=== PATIENT | female | born 1940 | race Caucasian/White ===

== ENCOUNTER 2022-11-21 13:34 | Inpatient (IN) | payer OTHER, MEDICAID ==
[~2022-11-21] VITALS: Ht 160 cm; Wt 57.4 kg
--- NOTE | 2022-11-21 13:42 | NUR ---
BIB EMS FROM [facility] [place] C/O LEFT HIP FRACTURE. PER EMS, THE [facility] REPORTED THAT X-RAYS WERE PERFORMED ON THE PT AND THEY DISCOVERED SHE HAS A LEFT HIP FRACTURE AND CALLED EMS FOR TRANFER TO A HOSPITAL FOR TREATMENT. PER EMS, NO KNOWN FALL WERE REPORTED OR WITNESSED. PT IS FULL CODE. PT ALLERGIC TO [facility]. PT IS A TOGOLESE SPEAKER. PT IS AAX04, VS STABLE, NAD NOTED, BREATHING EVEN AND UNLABORED ON RA, PT DENIES N/V/D, PT ON MOLD DUMPER SHOW NSR. PENDING MD SORIANO AND ORDERS.
[2022-11-21 13:54] VITALS: BP_SYST 148
--- NOTE | 2022-11-21 14:00 | NUR ---
PATIENT IN BED 2 AWAITING FOR EDP FOR INITIAL ASSESSMENT.
--- NOTE | 2022-11-21 14:15 | NUR ---
EDP SEEN PATIENT WITH ORDER MATILDE OUT.
[2022-11-21 14:21] LABS: BASOPHILS % (AUTO) 0.5 % (0.0-2.0); EOSINOPHILS # (AUTO) 0.3 K/uL (0.0-0.4); HEMATOCRIT 34.4 % (36-48); HEMOGLOBIN 10.9 g/dL (12.0-16.0); LYMPHOCYTES # (AUTO) 1.4 K/uL (1.0-5.5); LYMPHOCYTES % (AUTO) 16.5 % (20.5-51.5); MEAN CORPUSCULAR HEMOGLOBIN 26 pg (27-31); MEAN CORPUSCULAR HGB CONC 32 % (32-36); MEAN CORPUSCULAR VOLUME 83 fL (79.0-98.0); MONOCYTES # (AUTO) 0.8 K/uL (0.0-1.0); MONOCYTES % (AUTO) 9.2 % (1.7-9.3); NEUTROPHILS # (AUTO) 5.9 K/uL (1.8-7.7); NEUTROPHILS % (AUTO) 69.8 % (40.0-70.0); PLATELET COUNT (AUTO) 224 K/uL (130-430); RED BLOOD CELL COUNT(AUTO) 4.17 MIL/uL (4.2-6.2); RED CELL DISTRIBUTION WIDTH 17.8 % (9.0-15.0); WHITE BLOOD COUNT (AUTO) 8.5 K/uL (4.8-10.8)
[2022-11-21 14:26] LABS: ANION GAP 9 (5-15); CHLORIDE 101 mmol/L (98-107); CREATININE 0.67 mg/dL (0.55-1.30); GLUCOSE 108 mg/dL (70-99); UREA NITROGEN, BLOOD 16 mg/dL (8-21)
[2022-11-21 14:33] LABS: ALANINE AMINOTRANSFERASE 47 U/L (12-78); ALBUMIN 2.3 g/dL (3.4-4.8); ASPARTATE AMINOTRANSFERASE 25 U/L (10-37); TOTAL BILIRUBIN 0.6 mg/dL (0.0-1.0)
[2022-11-21 15:03] LABS: BILIRUBIN,URINE NEGATIVE (NEGATIVE); BLOOD, URINE NEGATIVE (NEGATIVE); CLARITY/URINE CLEAR (CLEAR); COLOR,URINE YELLOW (YELLOW); GLUCOSE,URINE NEGATIVE (NEGATIVE); KETONES,URINE NEGATIVE (NEGATIVE); LEUKOCYTE ESTERASE ,URINE NEGATIVE (NEGATIVE); NITRITE, URINE NEGATIVE (NEGATIVE); PROTEIN URINE NEGATIVE (NEGATIVE); UROBILINOGEN,URINE 0.2 (0.2-1.0)
[2022-11-21] MEDS ORDERED: MORPHINE 4 MG INJ. 4 MG/ML VIAL ONE (15:22)
[2022-11-21] MEDS ORDERED: ONDANSETRON HCL 4 MG/2 ML VIAL IVP ONE (15:30)
[2022-11-21] MEDS ORDERED: MORPHINE 2 MG/ML INJ. SYRINGE IVP ONE (15:30)
--- NOTE | 2022-11-21 16:42 | NUR ---
Admit bed requested Patient will be admitted to care of . Admitted to MS unit. Diagnosis LEFT TROCHANTER FRACTURE Inpatient (Yes or No) YES Observation (Yes or No) NO Orientation concerns or request close to nursing station (Yes or No) NO Covid Status PENDING On vent or bipap NO Isolation requirements NO Needs a sitter NO From Home (Yes or if No enter name of facility) [facility] Requires Dialysis (Yes or No) NO Med Rec Completed (Yes of No) YES
[2022-11-21] MEDS: D5/0.45 NS 1,000 ML IV SCH (16:45)
[2022-11-21] MEDS ORDERED: CAPS60CR4 TP (16:51)
[2022-11-21] MEDS ORDERED: LEVO100T PO (16:51)
[2022-11-21] MEDS ORDERED: ACET-2634 PO (16:51)
[2022-11-21] MEDS ORDERED: TRAM50TA2 PO (16:51)
[2022-11-21] MEDS ORDERED: ESOM40CA PO (16:51)
[2022-11-21] MEDS ORDERED: CLOP75TA32 PO (16:51)
[2022-11-21] MEDS ORDERED: ACET325T53 PO (16:51)
[2022-11-21] MEDS ORDERED: DONE10TA44 PO (16:51)
[2022-11-21] MEDS ORDERED: METO50TA7 PO (16:51)
[2022-11-21] MEDS ORDERED: BUPR75TA20 PO (16:51)
[2022-11-21] MEDS ORDERED: LIP80 PO (16:51)
[2022-11-21] MEDS ORDERED: DOCU-144 PO (16:51)
[2022-11-21] MEDS ORDERED: SENN8.6T19 PO (16:51)
[2022-11-21] MEDS ORDERED: LYR50 PO (16:51)
--- NOTE | 2022-11-21 16:51 | NUR ---
Medication reconciliation completed with information provided by [facility]. Any prior medication reconciliation on file was reviewed and corrected.
--- NOTE | 2022-11-21 17:35 | NUR ---
ORTHOPEDIC SURGEON AT BEDSIDE FOR INITIAL ASSESSMENT.
--- NOTE | 2022-11-21 19:05 | NUR ---
Note undone in EDM - 11/21/22 at 1906 by [email or web address] Patient given written and verbal discharge instructions and verbalizes understanding. ER MD discussed with patient the results and treatment provided. Patient in stable condition. ID arm band removed. IV catheter removed intact and dressing applied, no active bleeding. Rx of AMOXICILLIN/IBUPROFEN given. Patient educated on pain management and to follow up with PMD. Pain Scale0. Opportunity for questions provided and answered. Medication side effect fact sheet provided.
[2022-11-21] MEDS ORDERED: ACETAMINOPHEN 500 MG TABLET PO ONE (19:45)
--- NOTE | 2022-11-21 20:12 | NUR ---
ADMIT NOTE Received pt from ER with a diagnosis of left hip fracture. Admission process initiated. patient oriented to pain management, safety and call light-teach back done.
[2022-11-21 20:45] VITALS: BP_SYST 157
[2022-11-21] MEDS: ONDANSETRON HCL 4 MG/2 ML VIAL IVP PRN (21:10)
[2022-11-21] MEDS: MORPHINE 2 MG/ML INJ. SYRINGE IVP PRN (21:11)
--- NOTE | 2022-11-21 21:11 | NUR ---
PT COMPLAINT SO PAIN ON L HIP.MEDICATED WITH MORPHINE 1 MG IV. Addendum: 11/22/22 at 0703 by [facility] Elver Calles RN RN PT COMPLAINT OF PAIN ON L HIP.
[2022-11-22] VITALS: BP_SYST 137
--- NOTE | 2022-11-22 01:00 | NUR ---
ROUNDS MADE.PT HAS EVEN AND UNLABORED BREATHING NOTED.
[2022-11-22] MEDS: MORPHINE 2 MG/ML INJ. SYRINGE IVP PRN ×2 (03:53→16:51)
[2022-11-22] MEDS: ONDANSETRON HCL 4 MG/2 ML VIAL IVP PRN (03:53)
[2022-11-22 06:10] LABS: BASOPHILS % (AUTO) 0.6 % (0.0-2.0); EOSINOPHILS # (AUTO) 0.3 K/uL (0.0-0.4); EOSINOPHILS % (AUTO) 4.5 % (0.0-4.0); HEMATOCRIT 32.8 % (36-48); HEMOGLOBIN 10.5 g/dL (12.0-16.0); LYMPHOCYTES % (AUTO) 14.9 % (20.5-51.5); MEAN CORPUSCULAR HEMOGLOBIN 26 pg (27-31); MEAN CORPUSCULAR HGB CONC 32 % (32-36); MEAN CORPUSCULAR VOLUME 82 fL (79.0-98.0); MONOCYTES # (AUTO) 0.6 K/uL (0.0-1.0); MONOCYTES % (AUTO) 9.1 % (1.7-9.3); NEUTROPHILS # (AUTO) 4.7 K/uL (1.8-7.7); NEUTROPHILS % (AUTO) 70.9 % (40.0-70.0); PLATELET COUNT (AUTO) 231 K/uL (130-430); RED BLOOD CELL COUNT(AUTO) 4.01 MIL/uL (4.2-6.2); RED CELL DISTRIBUTION WIDTH 17.3 % (9.0-15.0); WHITE BLOOD COUNT (AUTO) 6.6 K/uL (4.8-10.8)
--- NOTE | 2022-11-22 06:27 | NUR ---
DR. Menjivar Called and s/w Dr. Menjivar. Informed medications reported and not reconciled yet. Received orders to continue all meds. Also received order for PTT, PT/INR, and consult with social scientist (unable to contact next of kin).
[2022-11-22] MEDS ORDERED: ACETAMINOPHEN 325 MG TABLET PO PRN (06:30)
[2022-11-22 06:46] LABS: ALANINE AMINOTRANSFERASE 43 U/L (12-78); ANION GAP 7 (5-15); ASPARTATE AMINOTRANSFERASE 21 U/L (10-37); CALCIUM 8.8 mg/dL (8.4-11.0); CHLORIDE 102 mmol/L (98-107); CREATININE 0.61 mg/dL (0.55-1.30); GLUCOSE 116 mg/dL (70-99); TOTAL BILIRUBIN 0.6 mg/dL (0.0-1.0); UREA NITROGEN, BLOOD 14 mg/dL (8-21)
[2022-11-22 08:00] VITALS: BP_SYST 157
--- NOTE | 2022-11-22 08:00 | NUR ---
OPENING NOTES PATIENT IS AOX2. BREATHING IS EVEN AND NONLABORED, ON ROOM AIR. NO SS OF DISTRESS NOTED. NO SOB NOTED. PATIENT DENIES SEVERE PAIN. VITAL SIGNS OBTAINED, DOCUMENTED. IV PATENT. F/C DRAINING BY GRAVITY. BED IS LOCKED, ALARM ON, AND AT LOWEST POSITION. CALL LIGHT WITHIN REACH.
[2022-11-22] MEDS: ZOSTRIX 0.025% CR TP SCH ×3 (08:51→21:00)
[2022-11-22] MEDS: LEVOTHYROXINE SODIUM 0.1 MG TABLET PO SCH (08:51)
[2022-11-22] MEDS: buPROPion HCL 75 MG TABLET PO SCH ×2 (08:51→21:00)
[2022-11-22] MEDS: PREGABALIN 25 MG CAPSULE (LYRICA) PO SCH ×2 (08:51→22:15)
[2022-11-22] MEDS: DOCUSATE SODIUM 100 MG CAPSULE PO SCH ×2 (08:51→22:15)
[2022-11-22] MEDS: METOPROLOL SUCCINATE 50 MG TAB.SR.24H (TOPROL XL) PO SCH (08:52)
[2022-11-22] MEDS: PANTOPRAZOLE SODIUM 40 MG TAB PO SCH (08:52)
[2022-11-22] MEDS: CLOPIDOGREL BISULFATE 75 MG TABLET PO SCH (08:52)
[2022-11-22] MEDS: traMADol HCL HCL 50 MG TABLET (ULTRAM) PO PRN ×2 (08:54→23:28)
[2022-11-22 08:57] LABS: INR 1.1 (0.8-1.2); PROTHROMBIN TIME 11.2 SECS (9.5-12.5)
[2022-11-22] MEDS ORDERED: NON-FORMULARY MEDICATION (Esomeprazole Mag Trihydrate (Nexium) 40 MG) PO SCH (09:00)
[2022-11-22 11:40] VITALS: BP_SYST 154
--- NOTE | 2022-11-22 12:00 | NUR ---
NOTES PATIENT IS EATING LUNCH. DENIES SEVERE PAIN. DAUGHTER AT BEDSIDE. CONSENTS HAVE BEEN SIGNED. DAUGHTER YOSSI MITCHELL STATES THAT HER SISTER BOBY WILL BE HERE TOMORROW. YOSSI'S NUMBER IS . BOBY'S NUMBER IS .
--- NOTE | 2022-11-22 12:49 | NUR ---
Tobacco Stripping Machine Operator HAND II THERMAL CUTTER recevied a referral to find next of kin. Pt is going to be getting a procedure. HAND II THERMAL CUTTER made several attempts to reach dtr. listed on the facesheet, no luck. HAND II THERMAL CUTTER called pts. residence, [facility] and was put on hold for a long time. HAND II THERMAL CUTTER read notes, Dr. Duque spoke to dtr. HAND II THERMAL CUTTER called FARRUKH Chamorro who stated dtr is in pts. room.Dtr confirmed listed phone number but also asked to add other Dtr. Dayanara Nina as another contact, . HAND II THERMAL CUTTER will send this info to [facility] to update facesheet.
[2022-11-22] MEDS: D5/0.45 NS 1,000 ML IV SCH (13:05)
--- NOTE | 2022-11-22 16:00 | NUR ---
NOTES PATIENT HAS BEEN CLEANED AND IS NOW RESTING, EYES CLOSED. NO CHANGE IN ASSESSMENT. SAFETY PRECAUTIONS IN PLACE AND CALL LIGHT WITHIN REACH.
[2022-11-22 16:17] VITALS: BP_SYST 154
--- NOTE | 2022-11-22 19:33 | NUR ---
CLOSING NOTES PATIENT IS RESTING. NO SS OF DISTRESS NOTED. BREATHING IS EVEN AND NONLABORED, ON ROOM AIR. IV PATENT. PATIENT DENIES SEVERE PAIN.F/C DRAINING BY GRAVITY. PATIENT STABLE. ALL NEEDS MET. SAFETY PRECAUTIONS IN PLACE AND CALL LIGHT WITHIN REACH. ENDORSED CARE TO [facility].
--- NOTE | 2022-11-22 19:55 | NUR ---
RECEIVED PT LYING IN BED, NO DISTRESS NOTED, C/O RT AND LF SHOULDER AND LT HIP PAIN, HOWEVER PT CANNOT INDICATE WHAT LEVEL OF PAIN SHE IS EXPERIENCING. AAOX1, O2 SAT 95% ON RA. IV TO RUE SITE CDI. PALPABLE PULSES TO ALL EXTREMITIES. LT FOOT WITH MINIMAL MOBILITY, + WARMTH, +BRISK CAP REFILL, + SENSATION. WILL BE MEDICATING PT. Addendum: 11/23/22 at 0613 by [facility] TAHIRA Calles RN SYNTHROID HELD D/T SCHEDULED SURGERY AT 0730
[2022-11-22 20:00] VITALS: BP_SYST 150
[2022-11-22] MEDS: SENNOSIDES 8.6 MG TABLET PO SCH (22:14)
[2022-11-22] MEDS: ATORVASTATIN 20 MG TABLET PO SCH (22:14)
[2022-11-22] MEDS: DONEPEZIL HCL 5 MG TABLET (ARICEPT) PO SCH (22:15)
[2022-11-23] VITALS: BP_SYST 139
[2022-11-23] MEDS: LEVOTHYROXINE SODIUM 0.1 MG TABLET PO SCH (06:11)
[2022-11-23] MEDS: D5/0.45 NS 1,000 ML IV SCH (06:16)
[2022-11-23 08:00] VITALS: BP_SYST 145
--- NOTE | 2022-11-23 08:00 | NUR ---
opening notes Patient is aox4. Patient is eating breakfast. tolerating well. No ss of distress noted. Breathing is even and nonlabored, on room air. denies SOB. Denies severe pain. IV patent. IVF running. Vital signs obtained, as documented. Bed is locked, alarm on, and at lowest position. Call light within reach. Addendum: 11/23/22 at 1130 by Ashtyn Carrera LVN Opening Notes Patient is aox2. Patient is NPO. No ss of distress noted. Breathing is even and nonlabored, on room air. NO SOB noted. Denies severe pain. IV patent. IVF running. Vital signs obtained, as documented. F/C draining via gravity. Bed is locked, alarm on, and at lowest position. Call light within reach.
[2022-11-23] MEDS: PREGABALIN 25 MG CAPSULE (LYRICA) PO SCH ×2 (09:00→20:47)
[2022-11-23] MEDS: ZOSTRIX 0.025% CR TP SCH ×3 (09:00→20:48)
[2022-11-23] MEDS: PANTOPRAZOLE SODIUM 40 MG TAB PO SCH (09:00)
[2022-11-23] MEDS: METOPROLOL SUCCINATE 50 MG TAB.SR.24H (TOPROL XL) PO SCH (09:00)
[2022-11-23] MEDS: CLOPIDOGREL BISULFATE 75 MG TABLET PO SCH (09:00)
[2022-11-23] MEDS: buPROPion HCL 75 MG TABLET PO SCH ×2 (09:00→20:52)
[2022-11-23] MEDS: DOCUSATE SODIUM 100 MG CAPSULE PO SCH ×2 (09:00→20:47)
--- NOTE | 2022-11-23 10:05 | NUR ---
notes patient left unit for OR.
[2022-11-23] MEDS ORDERED: ceFAZolin SODIUM 2 GM VIAL ONE (10:52)
[2022-11-23] MEDS ORDERED: PROPOFOL 200MG/ 20ML VIAL (DIPRIVAN) IV ONE (10:52)
[2022-11-23] MEDS ORDERED: NS IRRIG SOLN 1000 ML IR ONE (10:52)
[2022-11-23] MEDS ORDERED: fentaNYL CITRATE/PF 100 MCG/2 ML AMP ONE (10:52)
[2022-11-23] MEDS ORDERED: D5/0.45 NS 1,000 ML IV.SOLN IV ONE (10:52)
[2022-11-23] MEDS ORDERED: BUPIVACAINE /PF 0.25% 30 ML VIAL INJ ONE (10:52)
[2022-11-23] MEDS ORDERED: SEVOFLURANE 15 MIN GAS INH ONE (10:52)
[2022-11-23] MEDS ORDERED: HYDROmorphone 1 MG/ML INJ. CARTRIDGE IVP PRN (12:00)
[2022-11-23] MEDS ORDERED: LABETALOL 100 MG/ 20ML VIAL IVP PRN (12:00)
[2022-11-23] MEDS ORDERED: METOCLOPRAMIDE HCL 10 MG/2 ML VIAL IVP PRN (12:00)
[2022-11-23] MEDS ORDERED: ONDANSETRON HCL 4 MG/2 ML VIAL IVP PRN (12:00)
[2022-11-23] MEDS ORDERED: NALOXONE HCL 0.4 MG/ML AMP (NARCAN) IVP PRN (12:00)
[2022-11-23] MEDS ORDERED: HYDROmorphone 1 MG/ML INJ. CARTRIDGE ONE (13:43)
[2022-11-23 14:00] VITALS: BP_SYST 146
--- NOTE | 2022-11-23 14:00 | NUR ---
notes patient returned to unit. No ss of distress noted. Breathing is even and nonlabored, on room air. Vital signs obtained, as documented. Patient denies pain. No facial grimace noted. New Iv site 20 G L wrist. IVF running. Surgical incision site covered with dressing. Clean, dry, and intact. No active bleeding. F/c draining by gravity. Bed locked, alarm on, and at lowest position. Call light within reach.
[2022-11-23] MEDS: ceFAZolin SODIUM 2 GM in D5W 100 ML IV SCH ×2 (15:27→23:33)
--- NOTE | 2022-11-23 16:30 | NUR ---
Notes Patient is resting, eyes closed. No distress noted. No SOB noted. No facial grimace. Patient stable. Safety precautions in place and call light within reach.
--- NOTE | 2022-11-23 18:53 | NUR ---
Closing notes Patient is resting, in bed, eating dinner, HOB elevated. No ss of distress noted. Patient denies pain. No SOB noted. Breathing is even and nonlabored, on room air. IV patent. IVF running. Patient is stable. F/C draining by gravity. All needs met. Safety precautions in place and call light within reach.
--- NOTE | 2022-11-23 19:25 | NUR ---
OPENING NOTE PT SITTING IN BED, COMPLAINING OF MODERATE PAIN TO HER LEFT HIP. NO APPARENT SIGNS OF DISTRESS NOTED. BED IN LOWEST POSITION WITH FALL AND SAFETY PRECAUTIONS IN PLACE. CALL LIGHT WITHIN REACH. ALL NEEDS MET AT THIS TIME.
[2022-11-23 20:00] VITALS: BP_SYST 155
[2022-11-23] MEDS: traMADol HCL HCL 50 MG TABLET (ULTRAM) PO PRN (20:47)
[2022-11-23] MEDS: SENNOSIDES 8.6 MG TABLET PO SCH (20:48)
[2022-11-23] MEDS: ATORVASTATIN 20 MG TABLET PO SCH (20:48)
[2022-11-23] MEDS: DONEPEZIL HCL 5 MG TABLET (ARICEPT) PO SCH (20:48)
[2022-11-23] MEDS: ONDANSETRON HCL 4 MG/2 ML VIAL IVP PRN (21:55)
[2022-11-23] MEDS: MORPHINE 2 MG/ML INJ. SYRINGE IVP PRN (21:56)
[2022-11-24] VITALS: BP_SYST 135
[2022-11-24] MEDS: D5/0.45 NS 1,000 ML IV SCH (04:21)
[2022-11-24 06:11] LABS: BASOPHILS % (AUTO) 0.5 % (0.0-2.0); EOSINOPHILS # (AUTO) 0.2 K/uL (0.0-0.4); EOSINOPHILS % (AUTO) 2.9 % (0.0-4.0); HEMATOCRIT 29.4 % (36-48); HEMOGLOBIN 9.5 g/dL (12.0-16.0); LYMPHOCYTES # (AUTO) 1.2 K/uL (1.0-5.5); LYMPHOCYTES % (AUTO) 15.5 % (20.5-51.5); MEAN CORPUSCULAR HEMOGLOBIN 26 pg (27-31); MEAN CORPUSCULAR HGB CONC 32 % (32-36); MEAN CORPUSCULAR VOLUME 82 fL (79.0-98.0); MONOCYTES # (AUTO) 0.7 K/uL (0.0-1.0); MONOCYTES % (AUTO) 8.4 % (1.7-9.3); NEUTROPHILS # (AUTO) 5.7 K/uL (1.8-7.7); NEUTROPHILS % (AUTO) 72.7 % (40.0-70.0); PLATELET COUNT (AUTO) 219 K/uL (130-430); RED BLOOD CELL COUNT(AUTO) 3.61 MIL/uL (4.2-6.2); RED CELL DISTRIBUTION WIDTH 17.1 % (9.0-15.0); WHITE BLOOD COUNT (AUTO) 7.8 K/uL (4.8-10.8)
[2022-11-24 06:16] LABS: ANION GAP 8 (5-15); CALCIUM 8.3 mg/dL (8.4-11.0); CHLORIDE 100 mmol/L (98-107); CREATININE 0.59 mg/dL (0.55-1.30); GLUCOSE 109 mg/dL (70-99); UREA NITROGEN, BLOOD 9 mg/dL (8-21)
[2022-11-24] MEDS: LEVOTHYROXINE SODIUM 0.1 MG TABLET PO SCH (06:16)
[2022-11-24] MEDS: traMADol HCL HCL 50 MG TABLET (ULTRAM) PO PRN (06:17)
[2022-11-24] MEDS: ceFAZolin SODIUM 2 GM in D5W 100 ML IV SCH ×3 (06:38→21:10)
--- NOTE | 2022-11-24 07:19 | NUR ---
CLOSING NOTE PT LYING IN BED. NO APPARENT SIGNS OF DISTRESS NOTED. BED IN LOWEST POSITION WITH FALL AND SAFETY PRECAUTIONS IN PLACE. CALL LIGHT WITHIN REACH. IV FLUIDS RUNNING ORDERED. LARKIN DRAINING TO GRAVITY.
[2022-11-24 07:54] VITALS: BP_SYST 119
[2022-11-24] MEDS: MORPHINE 2 MG/ML INJ. SYRINGE IVP PRN (08:56)
[2022-11-24] MEDS: ONDANSETRON HCL 4 MG/2 ML VIAL IVP PRN (09:06)
--- NOTE | 2022-11-24 09:09 | NUR ---
Pt is currently being treated for pain and nausea. Morning PO meds will be provided at a later time.
[2022-11-24 11:24] VITALS: BP_SYST 145
--- NOTE | 2022-11-24 11:29 | NUR ---
I left a voicemail fro Dr. Menjivar for pain management after the pt sill reporting severe pain after being medicated with ultram and morphine dose at 1005. While waiting for a return call Dr. Stevens was at bedside and provided suggested pain management but wanted it to be discussed with Dr. Menjivar first before placing orders at 1038. Pt had been turned off her hip in the meanwhile with some relief. I called Dr. Menjivar again and discussed the recommendations and he was agreeable. New medication orders have been placed at 1125.
[2022-11-24] MEDS ORDERED: MORPHINE 2 MG/ML INJ. SYRINGE IVP PRN (11:30)
[2022-11-24] MEDS ORDERED: ACETAMINOPHEN 325 MG TABLET PO PRN (11:30)
--- NOTE | 2022-11-24 13:09 | NUR ---
I have spoken with the daughter Dawn to provide updates via phone. She then spoke with her mother and pt is refusing am meds at this time even though she is no longer nauseous. She is being medicated with new dose of morphine. There is another daughter at the bedside.
[2022-11-24] MEDS: DOCUSATE SODIUM 100 MG CAPSULE PO SCH ×2 (13:12→21:07)
[2022-11-24] MEDS: PREGABALIN 25 MG CAPSULE (LYRICA) PO SCH ×2 (13:12→21:07)
[2022-11-24] MEDS: ZOSTRIX 0.025% CR TP SCH ×3 (13:13→21:09)
[2022-11-24] MEDS: PANTOPRAZOLE SODIUM 40 MG TAB PO SCH (13:13)
[2022-11-24] MEDS: METOPROLOL SUCCINATE 50 MG TAB.SR.24H (TOPROL XL) PO SCH (13:13)
[2022-11-24] MEDS: buPROPion HCL 75 MG TABLET PO SCH ×2 (13:13→21:07)
[2022-11-24 15:40] VITALS: BP_SYST 145
[2022-11-24] MEDS: CLOPIDOGREL BISULFATE 75 MG TABLET PO SCH (16:07)
[2022-11-24] MEDS: HYDROcodone/ACETAMIN 5-325 MG TAB (NORCO/ VICODIN) PO PRN (16:17)
--- NOTE | 2022-11-24 16:22 | NUR ---
CM: faxed referral to [facility] , attn Arabella. cm to f/u in am. Per dr. Menjivar, plans to dc pt tomorrow.
[2022-11-24 19:00] VITALS: BP_SYST 148
--- NOTE | 2022-11-24 19:15 | NUR ---
change of shift.pt.presents quiescent affect.pt.presents s/p surgery:lt.orif dsg intact.pt.presents iv access location lt.forearm intact;patent iv fluids infusing.pt.presents bui cath intact;patent.language barrier extant;namibian pt's sole language.general status stable.respiratory status stable;unlabored@room air.call light/telephone w/in access of the pt.
[2022-11-24 20:00] VITALS: BP_SYST 148
--- NOTE | 2022-11-24 20:00 | NUR ---
pt.assessed.v/s assessed values wnl.no c/o pain,nausea.lt.hip dsg intact absent drainage/inflammation.iv access intact; patent.bui cath intact;patent.pt.repositioned.call light/telephone placed w/in access of the pt.
--- NOTE | 2022-11-24 21:00 | NUR ---
2100p medications administered.pt.capable to ingest the po medications w/out difficulty.no c/o pain,nausea.call light/telephone placed w/in access of the pt.
[2022-11-24] MEDS: SENNOSIDES 8.6 MG TABLET PO SCH (21:07)
[2022-11-24] MEDS: ATORVASTATIN 20 MG TABLET PO SCH (21:07)
[2022-11-24] MEDS: DONEPEZIL HCL 5 MG TABLET (ARICEPT) PO SCH (21:09)
--- NOTE | 2022-11-24 22:00 | NUR ---
pt.assessed.pt.quiescent.no c/o pain,nausea.iv access/bui carlos intact;patent.pt.repositioned.call light/telephone placed w/in access of the pt.
[2022-11-25] VITALS: BP_SYST 112
--- NOTE | 2022-11-25 | NUR ---
pt.assessed.v/s assessed values wnl.no c/o pain,nausea.no requests posited@this hour.iv access,bui cath intact;patent.pt.repositioned.call light/telephone placed w/in access of the pt.
[2022-11-25] MEDS: D5/0.45 NS 1,000 ML IV SCH ×2 (00:45→05:15)
--- NOTE | 2022-11-25 02:00 | NUR ---
pt.assessed.pt.quiescent.per flacc pain mgx pt.absent facial grimaces/body posturing.iv access,bui cath intact;patent. pt.repositioned.call light/telephone placed w/in access of the pt.
--- NOTE | 2022-11-25 04:00 | NUR ---
pt.assessed.pt.quiescent;somnolent.per flacc pain mgx pt.absent facial grimaces/body posturing.iv access,bui cath intact; patent.lt.hip dsg intact absent drainage/inflammation.pt.repositioned.call light/telephone placed w/in access of the pt.
[2022-11-25] MEDS: ceFAZolin SODIUM 2 GM in D5W 100 ML IV SCH ×2 (05:14→13:12)
[2022-11-25] MEDS: LEVOTHYROXINE SODIUM 0.1 MG TABLET PO SCH (05:16)
--- NOTE | 2022-11-25 06:00 | NUR ---
pt.assessed.no c/o pain,nausea;armenian.bui cath attended to.pt.repositioned.iv access intact.call light/telephone placed w/in access of the pt.
[2022-11-25 11:22] VITALS: BP_SYST 136
--- NOTE | 2022-11-25 11:34 | NUR ---
cm: franko Dent, assigned pt to room 7A, report # [phone] [phone]. Ambulance: Per itzel Ochoa at [facility], to use [facility] with auth/tracking # [id number]. Booked [facility] for 2:30 pm picker and sorter load and unload time. -- US Richard De La Cruz RN made aware. DC package placed in nursing station.
[2022-11-25] MEDS: PREGABALIN 25 MG CAPSULE (LYRICA) PO SCH (13:08)
[2022-11-25] MEDS: DOCUSATE SODIUM 100 MG CAPSULE PO SCH (13:08)
[2022-11-25] MEDS: CLOPIDOGREL BISULFATE 75 MG TABLET PO SCH (13:08)
[2022-11-25] MEDS: PANTOPRAZOLE SODIUM 40 MG TAB PO SCH (13:09)
[2022-11-25] MEDS: METOPROLOL SUCCINATE 50 MG TAB.SR.24H (TOPROL XL) PO SCH (13:10)
[2022-11-25] MEDS: ZOSTRIX 0.025% CR TP SCH ×2 (13:11→15:06)
[2022-11-25] MEDS: buPROPion HCL 75 MG TABLET PO SCH (13:11)
[2022-11-25] MEDS: HYDROcodone/ACETAMIN 5-325 MG TAB (NORCO/ VICODIN) PO PRN (13:13)
[2022-11-25 15:27] VITALS: BP_SYST 148
== END 2022-11-25 17:20 | DRG 480 ==
LOC: SED 13:34 → SMU 16:38
PROVIDERS: ADMIT Internal Medicine; ATTEND Internal Medicine
PROC: 2W6RXZZ Traction of Left Lower Leg (ICD-10-PCS; 2022-11-23)
PROC: 0QS706Z Reposition Left Upper Femur with Intramedullary Internal Fixation Device, Open Approach (ICD-10-PCS; principal; 2022-11-23 10:52)
DX: S72.142A Displaced intertrochanteric fracture of left femur, initial encounter for closed fracture (principal); E43 Unspecified severe protein-calorie malnutrition; R64 Cachexia; E78.5 Hyperlipidemia, unspecified; I10 Essential (primary) hypertension; W18.39XA Other fall on same level, initial encounter; Z20.822 Contact with and (suspected) exposure to COVID-19; F03.90 Unspecified dementia, unspecified severity, without behavioral disturbance, psychotic disturbance, mood disturbance, and anxiety; Z88.6 Allergy status to analgesic agent; Y93.89 Activity, other specified; Y92.89 Other specified places as the place of occurrence of the external cause; Y99.8 Other external cause status; Z68.22 Body mass index [BMI] 22.0-22.9, adult
CPT/HCPCS: 36415; 71045; 73502; 73552; 76000; 80048; 80053; 81003; 83880; 84484; 85025; 85610-TC; 85730-TC; 87081; 93005; 99285; J1170; J2270; J2405; J2704; J3010; J3490; J7060